=== PATIENT | female | born 1990 | race Two or more races ===

== ENCOUNTER 2016-12-28 02:07 | Observation (INO) | payer MEDICAID ==
[~2016-12-28] VITALS: Ht 160 cm; Wt 66.2 kg
[2016-12-28 05:05] VITALS: BP 110/78
[2016-12-28] MEDS ORDERED: PRENATAL PLUS1 TA1 PO (05:20)
[2016-12-28] MEDS ORDERED: IRON TABLETS325 MG PO (05:20)
--- NOTE | 2016-12-28 06:14 | ACUTE CARE PROGRESS NOTE (QUA) ---
Progress Notes Subjective Date 12/28/16 Time 0612 Assessment/Plan This inpt stay is expected to cross 2 MNs from start of care Yes (OB delivery) Comments: This 26-year-old 1, para 0, AB 0 female (Lao-speaking) is admitted at 39-5/7 weeks with irregular contractions. Her cervix is 1-2 cm, 75 percent, with a presenting vertex high. She is being augmented with intravenous Pitocin with anticipation of a vaginal delivery. at 0614
--- NOTE | 2016-12-28 06:14 | ACUTE CARE PROGRESS NOTE (QUA) ---
Progress Notes Subjective Date 12/28/16 Time 0612 Assessment/Plan This inpt stay is expected to cross 2 MNs from start of care Yes (OB delivery) Comments: This 26-year-old 1, para 0, AB 0 female (Croatian-speaking) is admitted at 39-5/7 weeks with irregular contractions. Her cervix is 1-2 cm, 75 percent, with a presenting vertex high. She is being augmented with intravenous Pitocin with anticipation of a vaginal delivery. at 0614
[2016-12-28 06:43] LABS: HEMOGLOBIN 14.1 g/dL (12.2-16.2); LYMPH # 2.1 K/mm3 (0.7-4.5); LYMPH % 27.3 % (10-50.0)
[2016-12-28 07:36] LABS: ABO BLOOD TYPE A; RH BLOOD TYPE POSITIVE
[2016-12-28 07:55] VITALS: BP 112/64
--- NOTE | 2016-12-28 12:39 | ACUTE CARE PROGRESS NOTE (QUA) ---
Progress Notes Subjective Date 12/28/16 Time 1236 Note After 7 hours of labor on intravenous Pitocin and good strong regular contractions, the patient's cervix has changed not at all rent (1-2 cm) and the vertex has not descended. The baby looks good on the monitor. The patient is, surprisingly, barely acknowledging the contractions. I've discussed with her the lack of progress and the possible need for section. She is contemplating that option, but at this time wishes to go home and await further progress. Because the baby looks completely normal and reactive on the monitor, I have no qualms about that decision at this time. She will be discharged to bedrest at home. I have instructed her to return for more painful contractions and/or spontaneous rupture of membranes. Otherwise, she is to return to the office in 3 days. Assessment/Plan This inpt stay is expected to cross 2 MNs from start of care Yes (OB delivery) at 3841
--- NOTE | 2016-12-28 12:42 | DISCHARGE SUMMARY STANDARD ---
Discharge Summary Date of admission: 12/28/16 Date of discharge: 12/28/16 Patient condition: Stable Discharge diagnosis (es): And. Term intrauterine , undelivered. 2. Failed induction. Hospital course: This 26-year-old female ( 1 para 0 AB 0) was admitted at 39-5/7 weeks for induction. She was having irregular contractions at the time of admission. Her cervix is 1-2 cm, 75 percent, with a high presenting vertex. Bag water intact. She was begun on intravenous Pitocin, and quickly developed a very strong labor pattern. The baby looked good throughout that process. However, after 7 hours of strong labor, no progress was made in either dilatation or descent. The patient was given the option at this time of primary section or further observation. She has elected to go home and await further developments. She is discharged to bedrest at home. She is given appropriate instructions and, in the absence of further developments, is to return to the office in 3 days. at 7042
== END 2016-12-28 13:45 | disposition home or self-care (01) ==
LOC: OB 02:07
PROVIDERS: Obstetrics & Gynecology
DX: O61.0 Failed medical induction of labor (principal); Z3A.39 39 weeks gestation of pregnancy
CPT/HCPCS: G0378

== ENCOUNTER 2016-12-31 10:16 | Inpatient (IN) | payer MEDICAID ==
[~2016-12-31] VITALS: Ht 160 cm; Wt 66.2 kg
[~2016-12-31 10:16] MED LIST: IRON TABLETS325 MG PO; PRENATAL PLUS1 TA1 PO
[2016-12-31 10:34] VITALS: BP 110/71
[2016-12-31 10:37] LABS: HEMOGLOBIN 13.7 g/dL (12.2-16.2); LYMPH # 1.4 K/mm3 (0.7-4.5); LYMPH % 22.5 % (10-50.0)
[2016-12-31] MEDS ORDERED: PRENATAL PLUS1 TA1 PO (10:39)
[2016-12-31] MEDS ORDERED: IRON TABLETS325 MG PO (10:39)
[2016-12-31 11:17] LABS: ABO BLOOD TYPE A
[2016-12-31 11:18] LABS: RH BLOOD TYPE POSITIVE
--- NOTE | 2016-12-31 12:33 | Operative Note ---
Procedure/Operative Record Date of Procedure: 12/31/16 Referring physician: Dr. Zimmer Pre-op diagnosis: 1. Term intrauterine . 2. Cephalopelvic disproportion with failure to progress. Post-op diagnosis: 1. Term intrauterine , delivered. 2. Cephalopelvic disproportion with failure to progress. 3. Persistent occiput posterior. 4. 6/10, 7 lbs. 10 oz., 19 inch male infant, born at 1153. Procedure performed: Primary low transverse cervical section. Surgeon: Kenan Tse Topper Press Operator Automatic(s): LORI Ambrosio Anesthesia: Spinal, AFUA Ashley Indications: 1. Term intrauterine . 2. Cephalopelvic disproportion with failure to progress. Description of procedure: After the patient was prepped and draped in usual fashion and spinal anesthesia was administered, a low Pfannenstiel incision was made across the midline, and the fat and fascia were in the usual fashion, bleeders being clamped and coagulated along the way. The peritoneum was entered with Metzenbaum scissors, and extended above and below. The bladder peritoneum was sharply and bluntly dissected from the area of incision, and the bladder was protected with a bladder blade. The uterus was entered in a low transverse fashion with a knife , and the incision was extended bluntly, bilaterally. The amniotic sac was ruptured for clear fluid. The baby was found to be in the direct occiput posterior position of the vertex and, with appropriate fundal pressure, the head was delivered, albeit with some difficulty, because of the large diameter of the head. There was no nuchal cord, nor was there any meconium. The baby's naso-and oropharynx were bulb suctioned, and the baby cried spontaneously on the abdomen, as was delivered. The cord was clamped and cut, 3 vessels were noted to be within the cord, and cord blood was obtained. The blood clotted, and so pH was not attainable. The baby was handed into the arms of the attending horse race starter, Dr. Zimmer, who assigned Apgars of 6 at 1 minute and 10 at 5 minutes to this 7 lbs. 10 oz., 19 inch male , born at 1153. The baby was taken to the nursery in excellent condition, along with the patient's partner, who was present in the operating room. The placenta was delivered manually, intact. A ring forceps was used to assure adequate drainage to the cervix; this was then passed off the field, as an unsterile instrument. The uterus was closed in 2 layers, the first a running locked suture of #1 Vicryl as an endometrial layer, and the second a running unlocked suture of #1 Vicryl as a myometrial layer, imbricating over the first. The bladder peritoneum was closed with a running unlocked suture of 2-0 Vicryl. Blood and clots within swept from the gutters, and the tubes and ovaries were inspected and found to be normal. The peritoneum was grasped with 3 Galina clamps, and closed with a running semi-locked suture of 0 Vicryl. The muscle was approximated with a running unlocked suture of 0 Vicryl. The fascia was closed with a running locked suture of #1 Vicryl. The subcutaneous fat and Jacinto's fascia were closed with a running unlocked suture of 2-0 Vicryl. The skin was closed with a subcuticular suture of 3-0 Vicryl, and appropriately dressed. The sponge and needle counts correct. The estimated blood loss was 450 mL. The urine is clear in the Mueller catheter. A pelvic examination at the close of the procedure express blood and clots from the involuting uterus , with IV Pitocin running. The patient tolerated the procedure well, and was taken to PACU in excellent condition. Her blood type is A positive. Her rubella titer is immune. She plans to bottlefeed. EBL (ml): 450 Complications: None Specimens: None at 1232
[2016-12-31 14:12] LABS: URINE BILIRUBIN - DIPSTICK NEGATIVE (NEG); URINE BLOOD NEGATIVE (NEG)
[2016-12-31 14:26] LABS: URINE SQUAMOUS CELLS OCC #/hpf (0-5)
--- NOTE | 2016-12-31 16:02 | ACUTE CARE PROGRESS NOTE (QUA) ---
Progress Notes Subjective Date 12/31/16 Time 1601 Note This is day of surgery. The patient is afebrile. Vital signs stable. Wound clean. Abdomen soft. Doing well. Assessment/Plan This inpt stay is expected to cross 2 MNs from start of care Yes () at 1602
[2016-12-31 20:01] VITALS: BP 101/58
--- NOTE | 2017-01-01 06:57 | ACUTE CARE PROGRESS NOTE (QUA) ---
Progress Notes Subjective Date 01/01/17 Time 0656 Note This is postop/ day number 1. The patient is afebrile. Vital signs stable. Wound clean. Abdomen soft. Lochia normal. Uterine fundus involuting well. The baby is doing well. [place]: Stable. Assessment/Plan This inpt stay is expected to cross 2 MNs from start of care Yes () at 0656
[2017-01-01 07:15] LABS: HEMOGLOBIN 9.8 g/dL (12.2-16.2)
[2017-01-01 07:30] VITALS: BP 94/54
--- NOTE | 2017-01-01 10:43 | PHARMACY CLINIC NOTE ---
Patient Demographics Patient Demographics Admission date: 12/31/16 Date: 01/01/17 Time: 1043 Allergies Coded Allergies: No Known Drug Allergies (-- 12/31/16) HEIGHT- FT: 5 IN: 3.00 K.225 VTE General Information Labs: Laboratory Tests 01/01 0625 Hematology Hgb (12.2 - 16.2 g/dL) 9.8 L Hct (37.0 - 47.0 %) 27.7 L Disclaimer The following section includes nursing documentation that has been pulled in for pharmacy review. VTE prophylaxis NQF [id number] VTE prophylaxis ordered? Yes Type of prophylaxis/treatment: ICD at 1043
[2017-01-02 00:50] VITALS: BP 110/72
--- NOTE | 2017-01-02 08:00 | ACUTE CARE PROGRESS NOTE (QUA) ---
Progress Notes Subjective Date 01/02/17 Time 0758 Note This is /postop day number 2. The patient is afebrile. Her vital signs are stable. Wound clean. Abdomen soft. Lochia normal. Uterine fundus involuting well. The baby was transferred to [facility] early this morning because of respiratory distress. The patient is anxious for early discharge and is stable. Her hemoglobin is 9.8 g. She will be discharged this morning. Assessment/Plan This inpt stay is expected to cross 2 MNs from start of care Yes () at 7264
--- NOTE | 2017-01-02 08:00 | ACUTE CARE PROGRESS NOTE (QUA) ---
Progress Notes Subjective Date 01/02/17 Time 0758 Note This is /postop day number 2. The patient is afebrile. Her vital signs are stable. Wound clean. Abdomen soft. Lochia normal. Uterine fundus involuting well. The baby was transferred to [facility] early this morning because of respiratory distress. The patient is anxious for early discharge and is stable. Her hemoglobin is 9.8 g. She will be discharged this morning. Assessment/Plan This inpt stay is expected to cross 2 MNs from start of care Yes () at 6756
--- NOTE | 2017-01-02 08:05 | DISCHARGE SUMMARY STANDARD ---
Discharge Summary Date of admission: 12/31/16 Date of discharge: 01/02/17 Patient condition: Stable Discharge diagnosis (es): 1. Term intrauterine , delivered. 2. Cephalopelvic disproportion. Failed induction. 3. Anemia. Hospital course: This 26-year-old 1, now para 1, AB 0 female was admitted after failed induction at 40-1/7 weeks for primary section for cephalopelvic disproportion. On the date of admission, she was taken to the operating room, where she underwent a primary low transverse cervical section, without complications. The baby was an 6/10, 7 lbs. 10 oz., 19 inch male , born at 1153 on 12/31/16.. Cord pH was unable to be done because the blood clotted. and postoperatively, the patient has done well. She is eating and ambulating, and has had a bowel movement. Her wound is clean. Her abdomen is soft. Her lochia is normal. Her uterine fundus has involuted well. Her vital signs are stable. Her hemoglobin is 9.8 g, but she is clinically stable. She is bottlefeeding. The baby did well initially, but has subsequently developed respiratory distress and has been transferred to [facility] NICU. The patient is anxious for early discharge because of that and is stable enough to be discharged. She is discharged home on iron and vitamins, and on Lortab 5/325 (number 30), 1 by mouth every 6 hours when necessary pain. She is given appropriate instructions as to diet, exercise, and wound care, and she is to return the office in 2 weeks for follow-up. Her blood type is A positive. Her rubella titer is immune. at 0804
[2017-01-02] MEDS ORDERED: HYDROCODONE-APA1 TA1 PO ×2 (08:07→08:08)
== END 2017-01-02 10:00 | disposition home or self-care (01) | DRG 766 ==
LOC: OB 10:16
PROVIDERS: Obstetrics & Gynecology
PROC: 10D00Z1 Extraction of Products of Conception, Low, Open Approach (ICD-10-PCS; principal; 2016-12-31 11:30)
DX: O64.0XX0 Obstructed labor due to incomplete rotation of fetal head, not applicable or unspecified (principal); Z37.0 Single live birth; Z3A.39 39 weeks gestation of pregnancy
CPT/HCPCS: G0378